=== PATIENT | male | born 1945 | race Caucasian/White ===

== ENCOUNTER → 2024-07-04 09:42 | Outpatient (REF) | payer MEDICARE, OTHER, SELFPAY | LOC: RAD 09:42 | PROVIDERS: ATTENDING PHYSICIAN Surgery Vascular Surgery; FAMILY PHYSICIAN Internal Medicine | DX: I65.29 Occlusion and stenosis of unspecified carotid artery (principal); I63.512 Cerebral infarction due to unspecified occlusion or stenosis of left middle cerebral artery | CPT/HCPCS: 93880 ==

== ENCOUNTER → 2024-11-21 14:19 | Outpatient (REF) | payer MEDICARE, OTHER, SELFPAY | LOC: RAD 14:19 | PROVIDERS: ATTENDING PHYSICIAN Podiatrist; FAMILY PHYSICIAN Internal Medicine | DX: I70.203 Unspecified atherosclerosis of native arteries of extremities, bilateral legs (principal) | CPT/HCPCS: 93922; 93925 ==

== ENCOUNTER 2025-02-27 10:05 | Emergency (ER) | payer MEDICARE, OTHER, SELFPAY ==
[2025-02-27 10:31] VITALS: BP 136/75
--- NOTE | 2025-02-27 11:24 | ED.GENMED ---
History of Present Illness
General
Chief Complaint: Musculo-Skeletal Complaint
Source: patient
Exam Limitations: none
Time Seen by Provider: 02/27/25 11:11
Nursing documentation reviewed up to this point in time: agreed with
History of Present Illness
History of Present Illness:
Patient is a 80-year-old male with past medical history of CVA hypertension hyperlipidemia who presents to the ER for evaluation. Patient reports a couple weeks ago he started with pain in his left leg and in his left groin. He saw the [facility]. He had an outpatient MRI of his lumbar spine and did rehab for a week. He reports pain is worsening. pain is radiating to his left groin and thigh.
Patient denies any recent injury/trauma. He denies any fever or chills. He denies any weakness in his legs. He denies any saddle paresthesia. He denies any bowel or bladder incontinence.
He does complain of a little swelling to the left leg.
Patient had the MRI done at [place], February 09, 2025. He did bring his report. The impression states significant facet arthropathy causing moderate to severe left-sided bony neuroforaminal narrowing at T12-L1 and L4-L5. There is significant
right-sided bony neural foramen narrowing at L4-L5 and L5-S1
Past History
Past History
ED Past Medical History: HTN, Hypercholesterolemia and Other
ED Past Surgical History: Orthopedic and Other
Social History
Tobacco: Non-smoker
Alcohol: Occasional
Personal:
Living: with family
Employment: Retired
Phy Exam
General Physical Exam
General Presentation: no apparent distress
General age: appears stated age
General Skin: warm and dry
General Habitus: normal
General Mental: alert
General Hydration: appears well hydrated
Neurological Exam
Neurological Exam: alert, oriented x3, no motor deficits and no sensory deficits
Musculoskeletal Exam
Musculoskeletal Exam: other (Very minimal swelling to left lower extremity strong pulses normal distal sensation, mild discomfort with internal rotation of the left hip)
Skin Exam
Skin Exam: normal color and warm/dry
Psychiatric Exam
Psychiatric Exam: normal mood/affect
Course
Orders/Labs/Results
Orders:
Orders
02/27/25 11:28
Hip, Left 2-3 Views [CR Hip - LT w/wo Pel 2-3 Vw*] Urgent
Comment:
Reason For Exam: pain
Include a pelvis x-ray?: Yes
Venous Doppler Lwr Ext Left [US Periph Venous LOWER Ext LT] Urgent
Comment:
Reason For Exam: pain/mild swelling
02/27/25 14:05
Dexamethasone Sod Phosphate [Decadron] 10 mg IM NOW STA
Vital Signs
Initial and Last Documented VS:
Initial Vital Signs
Temp Pulse Resp BP Pulse Ox
98.3 F 61 18 136/75 98
02/27/25 10:31 02/27/25 10:31 02/27/25 10:31 02/27/25 10:31 02/27/25 10:31
Last Documented Vital Signs
Temp Pulse Resp BP Pulse Ox
98.3 F 64 18 112/78 99
02/27/25 10:31 02/27/25 15:07 02/27/25 15:07 02/27/25 15:07 02/27/25 15:07
Vice President Sales consulted with Physician
Vice President [employer] consulted with physician?: Yes
MDM/Problems Addressed
Differential Diagnosis Includes:
Not limited to sciatica and radiculopathy less likely DVT
MDM/Problems Addressed:
Symptoms are consistent with sciatica. Patient has recent MRI which does show neuroforaminal narrowing in his lumbar region. He has no neurological deficits. He is seeing [facility] and due to see them again next week. He has minimal swelling on
exam however there is no evidence of infection. He has good range of motion. No saddle paresthesia no weakness no bowel bladder incontinence. No evidence of cauda equina. His peripheral ultrasound was negative. No acute findings on hip x-ray.
Patient was given a dose of IM Decadron here and will DC on steroid taper.
*Radiology
Radiology exam reviewed: radiology read reviewed
*Pulse Oximetry
SaO2: 98
Oxygen Mode of Delivery: Room air
Patient hypoxic: no
*Critical Care Note
Total Time (30-74mins, 75-104mins- exclusive of procedures): Not Applicable
ED Attending Note
-
Portions of this chart may have been created with voice recognition software.� Occasional wrong word or��sound alike� substitutions may have occurred due to the inherent limitations of voice recognition software.
Discharge Plan
Departure
Patient Disposition: Home (Routine Discharge)
Date of Disposition: 02/27/25
Time of Disposition: 14:39
Patient with high blood pressure during this ER visit?: Yes
Condition: Fair
Covid-19: Not Applicable
Discharge Problem:
Radicular pain
Instructions: Radiculopathy of the neck and back (including sciatica)
Prescriptions:
New
prednisone 10 mg Tablet
See Rx Instructions .ROUTE .COMPLEX Qty: 30 0RF
Rx Instructions:
Take By Mouth:
40 mg daily x3 days, 30 mg daily x3 days,
20 mg daily x3 days, 10 mg daily x3 days.
No Action
dapsone 25 MG tablet
25 mg PO DAILY
cholecalciferol (vitamin D3) 1,000 UNITS tablet
1,000 units PO DAILY
atorvastatin 40 MG tablet
40 mg PO QPM Qty: 30 0RF
aspirin 81 MG tablet,delayed release (DR/EC)
81 mg PO DAILY 0RF
cyanocobalamin (vitamin B-12) 1,000 MCG tablet
1,000 mcg PO DAILY
pyridoxine (vitamin B6) [Vitamin B-6] 100 MG tablet
100 mg PO DAILY
atenolol 50 MG tablet
100 mg PO DAILY
losartan-hydrochlorothiazide 1 TAB tablet
1 tab PO DAILY
allopurinol 300 MG tablet
300 mg PO DAILY
lidocaine [Aspercreme (lidocaine)] 1 PATCH adhesive patch,medicated
1 patch topical DAILY 0RF
thiamine HCl (vitamin B1) 100 MG tablet
100 mg PO BID 0RF
tramadol 50 MG tablet
50 mg PO Q6 Qty: 8 0RF
acetaminophen [Tylenol Extra Strength] 500 MG tablet
1,000 mg PO Q8 0RF
pantoprazole 40 MG tablet,delayed release (DR/EC)
40 mg PO DAILY 0RF
vancomycin [Firvanq] 50 MG/ML recon soln
125 mg PO Q6 0RF
Rx Instructions:
for 11 more days
Lactobac 2-Bifido 1-S. therm [High Potency Probiotic] 1 CAP capsule
2 cap PO DAILY 0RF
Referrals:
BRITNEY MCMAHAN MD [Family Provider, Internal Medicine]
Activity Restrictions/Additional Instructions:
As discussed symptoms are consistent with radiculopathy, pinched nerve. Please follow-up with your orthopedic doctor as scheduled next week. In addition please follow with your family doctor. You were given 1 dose of steroids here in the ER.
Start steroid taper tomorrow. This prescription was sent to your pharmacy. Return if any worsening of symptoms.
Interventions
Interventions:
*Risk Screen - Suicide Last Done: 02/27/25 10:31
*General Assessment Last Done: 02/27/25 11:35
*Neglect/Abuse Screening Last Done: 02/27/25 11:45
*ED- Fall Risk Assessment Last Done: 02/27/25 11:35
*ED COVID-19 Vaccine History Last Done: 02/27/25 11:35
*Nursing Disposition Last Done: 02/27/25 15:07
ED-Musculoskeletal Assessment Last Done: 02/27/25 11:35
Discharge Date and Time
Discharge Date/Time: 02/27/25 15:00
Print Language: GABONESE
[2025-02-27 11:35] VITALS: BMI 25.2
[2025-02-27 12:29] VITALS: BP 141/73
[2025-02-27] MEDS: DECADRON 10 MG IM (14:19)
--- NOTE | 2025-02-27 15:02 | EDRN ---
Reviewed discharge instructions with patient. Verbalized understanding. Taken to lobby in wheelchair to wait for his ride home.
[2025-02-27 15:07] VITALS: BP 112/78
== END 2025-02-27 15:00 | disposition home or self-care (01) ==
LOC: EMR 10:05
PROVIDERS: EMERGENCY PHYSICIAN Student in an Organized Health Care Education/Training Program; FAMILY PHYSICIAN Internal Medicine
DX: M54.10 Radiculopathy, site unspecified (principal); R22.42 Localized swelling, mass and lump, left lower limb; I10 Essential (primary) hypertension; E78.00 Pure hypercholesterolemia, unspecified; Z86.73 Personal history of transient ischemic attack (TIA), and cerebral infarction without residual deficits
CPT/HCPCS: 96372; 99284; 73502; 93971